=== PATIENT | female | born 1960 | race Hispanic/Latino ===

== ENCOUNTER 2016-07-10 11:47 | Emergency (ER) | payer OTHER ==
[~2016-07-10] VITALS: Ht 170.2 cm; Wt 66.7 kg
[~2016-07-10 11:47] MED LIST: ALBUTEROL 3 ML3 ML INH; ATROVENT HFA 121 PUF INH; NEBULIZER MACHINE INH; PREDNICOT20 MG PO
[2016-07-10 11:56] VITALS: BP 147/88
[2016-07-10] MEDS ORDERED: POLYTRIM EYE DR10 ML OPH (12:06)
--- NOTE | 2016-07-10 12:07 | ED EYE COMPLAINT ---
History of Present Illness General Chief Complaint: Eye Problems Stated Complaint: PT HAS ITCHY IN BOTH EYES Source: patient Exam Limitations: no limitations Vital Signs & Intake/Output Vital Signs & Intake/Output ED Intake and Output 07/11 0000 07/10 1200 Intake Total Output Total Balance Patient 147 lb Weight Allergies Coded Allergies: shrimp (Severe, ANAPHYLAXIS 04/16/15) Reconcile Medications Albuterol Sulfate (Proventil) 2.5 MG/3 ML NEB 3 ML INH Q4P PRN SHORTNESS OF BREATH Ipratropium [place] (Atrovent HFA 12.9 GMS) 1 PUF PUF 2 PUF INH 4 TIMES/DAY ASTHMA [NEBULIZER MACHINE] 0 INH Q4H PRN ASTHMA NEBULIZER MACHINE #1 DIAGNOSIS: ASTHMA Polytrim (Polytrim Eye Drops) 10,000 UNIT-1 MG/ML DROPS 1 GTT OPH Q6 CONJUNCTIVITIS Prednisone (Prednicot) 20 MG TAB 1 TAB PO BID ASTHMA Triage Note: COMPLAINS OF BILATERAL ITCHY EYES X 2 WEEKS. TAKING ALLERGIE MEDS WITH NO RELIEF Triage Nurses Notes Reviewed? yes Onset: Gradual Duration: week(s): (2) Timing: remote history Injury Environment: home Severity: moderate Severity Numbers: 7 No Modifying Factors: none HPI: Patient is a 55-year-old female presenting to the emergency department with chief complaint of itchy eyes with watery eyes discharge to started this morning. Itchiness and eyes have been going on for the past 2 weeks. Denies any fevers chills nausea or vomiting. Positive upper respiratory congestion. Taking oral allergy medications without relief. Denies any visual changes. Denies chest pain or shortness of breath. She does not wear contacts, and only wears glasses for reading. (IAN ÁLVAREZ) Past History Travel History Traveled to [place] past 21 day No Medical History Any Pertinent Medical History? 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 No (IAN ÁLVAREZ) Review of Systems Review of Systems Constitutional: Reports: no symptoms. Comments Review of systems: See HPI, All other systems negative. Constitutional, no chills fever or weight loss HEENT: No visual changes no sore throat Cardiovascular: No CP,palpitation Skin, no jaundice no rashes Respiratory: No dyspnea cough sputum or hemoptysis GI: No nausea no vomiting Muscle skeletal: no back pain, no neck pain, Neurologic: No numbness no confusion NO JURADO Psych: No stress anxiety Immunology: No splenectomy or history of AIDS (IAN ÁLVAREZ) Physical Exam General Appearance: well developed/nourished, no apparent distress, alert, awake , comfortable General Inspection: normal inspection Eyelid: normal inspection Conjunctiva/Sclera: injected Cornea: normal inspection EOM: intact Pupil: normal accommodation, normal pupil, PERRL General Inspection: normal inspection Eyelid: normal inspection Conjunctiva/Sclera: injected EOM: intact Pupil: normal accommodation, normal pupil, PERRL Anterior Chamber: normal inspection Physical Exam Head: atraumatic Comments: Well-developed well-nourished person in no acute distress HEENT: extraocular motion intact, no nystagmus. Pupils equally round and reactive to light and accommodation. Nose is atraumatic. External auditory canal and Tympanic membranes clear. Pharynx normal. No swelling or edema. Conjunctivae are injected bilaterally with clear discharge. Slight crusting noted in the eyelashes bilaterally. Neck: Normal inspection Back: Nontender Respiratory: No respiratory distress. Extremity: No edema Neuro: Alert oriented x3 Skin: No appreciable rash on exposed skin, skin is warm and dry. Psych: Mood and affect is normal, memory and judgment is normal. (IAN ÁLVAREZ) Progress Differential Diagnosis: ALLERGIC CONJUNCTIVITIS, BACTERIAL CONJUNCTIVITIS, VIRALCONJUNCTIVITIS, UPPER RESPIRATORY INFECTION, SEASONAL ALLERGIES. Plan of Care: He likely started as allergic conjunctivitis, secondary to crusting recently returned bacterial. Patient will be treated symptomatically with an asthmatic eyedrops. Educated on using warm compresses and to avoid rubbing. She will continue using [id number] allergy medication as directed. She'll return for worsening symptoms or concerns. (IAN ÁLVAREZ) Departure Departure Time of Disposition: 1205 Disposition: HOME OR SELF CARE Condition: Stable Clinical Impression Primary Impression: Conjunctivitis Qualifiers: Conjunctivitis type: acute Acute conjunctivitis type: unspecified Laterality: bilateral Qualified Code: H10.33 - Unspecified acute conjunctivitis, bilateral Referrals: JYOTI RODRIGUEZ,JONATHON Kat (PCP/Family) Additional Instructions: Follow-up with your primary care physician continue taking daily allergy medication. Use eye drops as directed. Return for worsening symptoms or concerns. Departure Forms: Customer Survey General Discharge Information Prescriptions: Current Visit Scripts Polytrim (Polytrim Eye Drops) 1 GTT OPH Q6 #10 ML (IAN ÁLVAREZ) PA/HEMATOLOGY SPECIALIST Co-Sign Statement Statement: ED Attending supervision documentation- [] I saw and evaluated the patient. I have also reviewed all the pertinent lab results and diagnostic results. I agree with the findings and the plan of care as documented in the PA's/HEMATOLOGY SPECIALIST's documentation. [X] I have reviewed the ED Record and agree with the PA's/HEMATOLOGY SPECIALIST's documentation. [] Additions or exceptions (if any) to the PAs/HEMATOLOGY SPECIALIST's note and plan are summarized below: [] (JORGE RODRIGUEZ,POPPY)
== END 2016-07-10 12:13 ==
LOC: ERH 11:47
DX: H10.9 Unspecified conjunctivitis (principal)